=== PATIENT | female | born 1965 | race Caucasian/White ===

== ENCOUNTER 2024-02-28 08:46 | Outpatient (RCR) | payer BC, SELFPAY | END 2024-06-27 23:59 | disposition home or self-care (01) | PROVIDERS: Visit Provider Nurse Practitioner Family | DX: H81.11 Benign paroxysmal vertigo, right ear (principal); H81.90 Unspecified disorder of vestibular function, unspecified ear; R26.9 Unspecified abnormalities of gait and mobility; Z51.89 Encounter for other specified aftercare | CPT/HCPCS: 97112; 97161 ==

== ENCOUNTER 2024-05-22 14:14 | Outpatient (CLI) | payer BC, SELFPAY | END 2024-05-22 14:15 | disposition home or self-care (01) | PROVIDERS: Visit Provider Family Medicine | DX: Z00.00 Encounter for general adult medical examination without abnormal findings (principal); E55.9 Vitamin D deficiency, unspecified; Z13.6 Encounter for screening for cardiovascular disorders; Z13.0 Encounter for screening for diseases of the blood and blood-forming organs and certain disorders involving the immune mechanism; Z13.1 Encounter for screening for diabetes mellitus; Z13.29 Encounter for screening for other suspected endocrine disorder; Z82.49 Family history of ischemic heart disease and other diseases of the circulatory system | CPT/HCPCS: 80053; 80061; 80074; 82306; 83695; 84443; 86141 ==

== ENCOUNTER 2024-06-08 10:31 | Outpatient (CLI) | payer BC, SELFPAY ==
--- NOTE | 2024-06-08 10:45 | CRLHL7_ITS ---
For Patients: As a result of the Century Cures Act, medical imaging exams and procedure reports are released immediately into your electronic medical record. You may view this report before your referring provider. If you have questions, please contact your health care provider. INDICATION: Elevated liver function tests TECHNIQUE: Ultrasound abdomen limited. Sonographic images of the right upper quadrant were obtained using de la garza-scale and color Doppler images. COMPARISON: None FINDINGS: Liver: Normal in size and echotexture. No masses. No intrahepatic biliary dilatation. Gallbladder: No stones or sludge. Normal wall thickness. No pericholecystic fluid. Common bile duct: 2 mm. Pancreas: Normal. Right kidney: Normal in size. Normal echotexture and cortex. No evidence of hydronephrosis. Echogenic 4 x 2 x 2 millimeter structure at the mid kidney and 4 x 1 millimeter at the lower pole. Vasculature: Proximal abdominal aorta and IVC are normal. IMPRESSION: 1. Likely nonobstructing kidney stones within the right kidney measuring 4 millimeters. 2. Otherwise, remainder of the right upper quadrant ultrasound is within normal limits. Dictated by Nakul Menjivar MD @ 06/09/2024 8:13:09 AM (Electronically Signed)
== END 2024-06-08 10:32 | disposition home or self-care (01) ==
LOC: US 10:32
PROVIDERS: PCP Family Medicine; Visit Provider Family Medicine
DX: R79.89 Other specified abnormal findings of blood chemistry (principal); N20.0 Calculus of kidney
CPT/HCPCS: 76705

== ENCOUNTER 2024-06-15 16:13 | Outpatient (CLI) | payer BC, SELFPAY | END 2024-06-15 16:14 | disposition home or self-care (01) | LOC: NFLDREF 06-17 14:14 | PROVIDERS: PCP Family Medicine; Referring Provider Family Medicine; Visit Provider Family Medicine | DX: R79.89 Other specified abnormal findings of blood chemistry (principal) | CPT/HCPCS: 80076; 82390; 82525; 82728; 82977; 83615; 86038; 86381 ==

== ENCOUNTER 2025-05-28 14:50 | Outpatient (CLI) | payer BC, SELFPAY ==
[2025-05-28 23:27] LABS: Chlamydia DNA Amplified* NOT DETECTED (No Detected); GC DNA Amplified* NOT DETECTED (No Detected)
[2025-05-31 17:40] LABS: HPV Source Cervix
[2025-06-02 16:37] LABS: Pap Test Digital Imaging Done
== END 2025-05-28 14:51 | disposition home or self-care (01) ==
PROVIDERS: PCP Family Medicine; Visit Provider Physician Assistant Medical
DX: Z00.00 Encounter for general adult medical examination without abnormal findings (principal)
CPT/HCPCS: 80053; 80061; 87491; 87591; 87624; 87625; 88141; 88142; 88175